=== PATIENT | female | born 1950 | race Caucasian/White ===

== ENCOUNTER → 2018-04-27 15:06 | Outpatient (CLI) | payer MEDICARE, OTHER, SELFPAY ==
--- NOTE | 2018-04-27 14:57 | DI.REPORT_ITS ---
SYMPTOMS/DIAGNOSIS: SWELLING OF LEFT WRIST, N79.89 LEFT WRIST: Three views. No bone or joint abnormality is identified. No radiopaque foreign bodies are seen in the soft tissues. IMPRESSION: Negative left wrist.
== END ==
PROVIDERS: PCP Family Medicine; Visit Provider Family Medicine
DX: M25.532 Pain in left wrist (principal); M79.89 Other specified soft tissue disorders
CPT/HCPCS: 73110

== ENCOUNTER 2019-11-21 10:12 | Outpatient (REF) | payer OTHER, SELFPAY ==
[2019-11-21 12:38] LABS: Anion Gap 11.4 mmol/L (3-11); BUN 13 mg/dL (7-18); CO2 25.6 mmol/L (21.0-32.0); CREATININE 0.87 mg/dL (0.55-1.02); Calcium 9.3 mg/dL (8.5-10.1); Calculated LDL 96 mg/dL (<100); Chloride 105 mmol/L (98-107); Cholesterol 163 mg/dL (<200); Glucose 86 mg/dL (74-106); HDL Cholesterol 57 mg/dL (40-60); Potassium 4.3 mmol/L (3.5-5.1); Sodium 142 mmol/L (136-145); Triglyceride 50 mg/dL (<150)
== END 2019-11-21 10:32 ==
LOC: NCHCN 10:12
PROVIDERS: PCP Family Medicine; Visit Provider Nurse Practitioner Family
DX: M25.511 Pain in right shoulder (principal); Z13.6 Encounter for screening for cardiovascular disorders
CPT/HCPCS: 80048; 80061

== ENCOUNTER 2019-12-02 10:07 | Outpatient (REF) | payer OTHER, SELFPAY ==
--- NOTE | 2019-12-02 09:15 | PAPFT_PTH ---
PATIENT: Nicky Ward LOC: [facility] U#:[id number] AGE/SX: 69/F ROOM: RE12/02/[address]: GENEVA Weinstein : 1950 BED: DIS: 12/02/2019 SPEC #: [id number] RECD: 12/02/19 12:52 STATUS: JAIR REQ #: [id number] PAVEL: 12/02/19 09:[address]: Jo Chambers DEPT: [facility] Cytology RECD BY: Catrina Stevens ENTERED: 12/02/19 12:53 SP TYPE: PAPFT OTHR DR: Kaitlin Edwards Tissues: 1 - CX/ENDOCX FOR PAP SMEARS Procedures: PAP THIN PREP/UVM Screening HPV DNA PROBE Comments: [id number]
== END 2019-12-02 10:27 ==
LOC: LBN 10:07
PROVIDERS: PCP Family Medicine; Visit Provider Nurse Practitioner Family
DX: Z12.4 Encounter for screening for malignant neoplasm of cervix (principal); Z11.51 Encounter for screening for human papillomavirus (HPV)
CPT/HCPCS: 88142; 87624

== ENCOUNTER 2020-08-12 16:11 | Outpatient (REF) | payer OTHER, SELFPAY ==
[2020-08-16 17:31] LABS: Patient Race White; SARS-CoV-2 RNA Undetected (Undetected); SARS-CoV-2 Specimen Source Nasal
== END 2020-08-12 16:31 ==
LOC: NCHCN 16:11
PROVIDERS: PCP Family Medicine; Visit Provider Physician Assistant
DX: Z20.828 Contact with and (suspected) exposure to other viral communicable diseases (principal)
CPT/HCPCS: U0003

== ENCOUNTER 2021-01-26 01:38 | Outpatient (CLI) | payer OTHER, SELFPAY ==
--- NOTE | 2021-01-26 | DI.DEXA_ITS ---
Exam(s) XR DEXA BONE DENSITY W/WO SHANNON EXAM: XR DEXA BONE DENSITY W/WO SHANNON CLINICAL HISTORY: SCREENING FOR OSTEOPOROSIS,Z13.820 TECHNIQUE: COMPARISON: No exams were available for comparison FINDINGS: Lateral Spine Image: Unremarkable. No compression deformities identified. Left hip: Total T-Score: -0.2 Total Z-Score: 1.4 T- and Z-scores: Within normal limits. Lumbar Spine: Total T-Score: 2.0 Total Z-Score: 4.2 T- and Z-scores: Within normal limits. IMPRESSION: Within normal limits. No evidence of osteoporosis.
== END 2021-01-26 01:58 ==
PROVIDERS: PCP Family Medicine; Visit Provider Nurse Practitioner Family
DX: Z13.820 Encounter for screening for osteoporosis (principal); Z78.0 Asymptomatic menopausal state
CPT/HCPCS: 77080

== ENCOUNTER 2021-05-18 11:17 | Outpatient (REF) | payer OTHER, SELFPAY ==
--- NOTE | 2021-05-18 10:00 | PAPFT_PTH ---
PATIENT: Nicky Ward LOC: [facility] U#:[id number] AGE/SX: 71/F ROOM: RE05/18/[address]: GENEVA Weinstein : 1950 BED: DIS: 05/18/2021 SPEC #: [id number] RECD: 05/18/21 12:52 STATUS: JAIR REQ #: [id number] PAVEL: 05/18/21 10:[address]: Jo Chambers DEPT: [facility] Cytology RECD BY: Catrina Stevens ENTERED: 05/18/21 12:52 SP TYPE: PAPFT OTHR DR: Kaitlin Edwards Tissues: 1 - CX/ENDOCX FOR PAP SMEARS Procedures: PAP THIN PREP/UVM Screening HPV DNA PROBE Comments: [id number]
== END 2021-05-18 11:18 | disposition home or self-care (01) ==
LOC: LBN 11:17
PROVIDERS: PCP Family Medicine; Visit Provider Nurse Practitioner Family
DX: Z12.4 Encounter for screening for malignant neoplasm of cervix (principal); Z11.51 Encounter for screening for human papillomavirus (HPV); Z01.419 Encounter for gynecological examination (general) (routine) without abnormal findings
CPT/HCPCS: 88142; 87624

== ENCOUNTER 2021-12-17 15:51 | Outpatient (REF) | payer OTHER, SELFPAY ==
[2021-12-17 16:14] LABS: Anion Gap 8.6 mmol/L (3-11); BUN 12 mg/dL (7-18); CO2 27.4 mmol/L (21.0-32.0); CREATININE 0.9 mg/dL (0.55-1.02); Calcium 9.3 mg/dL (8.5-10.1); Calculated LDL 119 mg/dL (<100); Chloride 104 mmol/L (98-107); Cholesterol 209 mg/dL (<200); Glucose 89 mg/dL (74-106); HDL Cholesterol 76 mg/dL (40-60); Potassium 4.2 mmol/L (3.5-5.1); Sodium 140 mmol/L (136-145); Triglyceride 73 mg/dL (<150)
== END 2021-12-17 15:52 | disposition home or self-care (01) ==
LOC: NCHCN 15:51
PROVIDERS: PCP Family Medicine; Visit Provider Nurse Practitioner Family
DX: Z13.220 Encounter for screening for lipoid disorders (principal)
CPT/HCPCS: 80048; 80061

== ENCOUNTER 2022-08-31 02:48 | Outpatient (CLI) | payer MEDICARE, SELFPAY ==
--- NOTE | 2022-08-31 | DI.US_ITS ---
Exam(s) US HERNIA EXAM: US HERNIA CLINICAL HISTORY: LT GROIN PAIN, R10.32 TECHNIQUE: Ultrasound performed using standard protocol. COMPARISON: No exams were available for comparison FINDINGS: Ultrasound of the inguinal regions was performed to evaluate for possible hernia. No hernia was iden tified. There are a couple of normal-appearing lymph nodes seen bilaterally in the inguinal regions. IMPRESSION: Negative soft tissue ultrasound of inguinal regions. DATA REPOSITORY:
== END 2022-08-31 03:08 ==
PROVIDERS: PCP Family Medicine; Visit Provider Nurse Practitioner Family
DX: R10.32 Left lower quadrant pain (principal)
CPT/HCPCS: 76857

== ENCOUNTER 2022-10-23 22:25 | Observation (INO) | payer MEDICARE, SELFPAY ==
--- NOTE | 2022-10-23 22:00 | RT.EKG_ITS ---
APPROVED REPORT Exam: Resting ECG Reason for Exam: chest pain Patient Location: E HR:53 bpm ECG Measurements Heart Rate 53 AXIS AK 172 P 51 QRSd 113 QRS 30 QT 419 T 37 QTc 393 Conclusion Sinus bradycardia...rate< 60 Physician: no stemi
[2022-10-23 22:23] VITALS: BP 151/57; PULSE 53; RESP 14; TEMP 36.7; O2SAT 99
--- NOTE | 2022-10-23 22:30 | DI.RAD_ITS ---
Exam(s) XR PORTABLE CHEST AP EXAM: XR PORTABLE CHEST AP CLINICAL HISTORY: central chest pain TECHNIQUE: 2D digital imaging was performed of the chest. One image was obtained. An AP view was ob tained. COMPARISON: CR CHEST 2 VIEWS PA,LAT from 08/18/2017 FINDINGS: MEDIASTINUM: Normal. HEART: Normal. PULMONARY VASCULATURE: Normal. LUNGS: Clear. PLEURAL SPACE: No pleural effusion or pneumothorax. BONE:Within normal limits for the patient's age. There is a mild right convex curvature of the thorac ic spine. OTHER FINDINGS:Normal. IMPRESSION: No acute pulmonary findings. DATA REPOSITORY: RADIATION DOSE DELIVERED:
[2022-10-23 22:32] VITALS: RESP 15
--- NOTE | 2022-10-23 22:32 | ED.GENADUL_ITS ---
Discharge Plan Disposition Patient Disposition: Admit to [facility] Condition: Improving Discharge Details Chief Complaint: Chest Pain Clinical Impression: Chest pain Primary Care Provider: Claritza Leone ED Provider: Ramon Emery Home Meds and New Rx's Prescriptions: No Action vitamin B complex Capsule 1 cap PO DAILY calcium carbonate [Calcium 600] 600 mg calcium (1,500 mg) tablet 600 mg PO BID estradiol 0.01 % (0.1 mg/gram) cream 1 g VG .COMPLEX Qty: 42.5 5RF Rx Instructions: 1 g vaginal twice a week cholecalciferol (vitamin D3) [Vitamin D3] 2,000 UNIT capsule 2,000 unit PO DAILY Medical Decision Making 72-year-old female with no significant past medical history who is healthy does not smoke, who presents today for evaluation of chest pain. Patient states that throughout the day her cat was notably interactive, and would not leave her alone. This did concern her for its atypical miss, and then this evening at 1930 the patient developed sudden central chest pain. She described it as a 5 out of 10. EMS arrived and she was given full dose aspirin and nitroglycerin which brought her pain down to a 0. After this the pain slowly came back to a 1 out of 10, and she was redosed with nitroglycerin which again resolved her pain. She denies any recent long trips, surgeries or procedures. No other complaints at this time. Currently she is chest pain- free. No history of blood clots or cardiac disease. She did have a stress test in 2017 which was normal. Exam demonstrates a well-appearing female, Physical exam demonstrates a well-appearing female, vital signs stable aside from mild hypertension. EKG shows no evidence of STEMI whatsoever. With the patient's resolution of her symptoms with nitroglycerin I am certainly concerned for cardiac etiology, will monitor closely evaluate for concerning etiologies and reassess. 12:47 AM Laboratory work-up has returned, no white count, bandemia or left shift, thyroid function normal, proBNP normal, with no suggestion of significant heart strain. EKG normal. Patient's pain did return, repeat EKG was ordered at that time which is normal, no signs of STEMI. Nitroglycerin ointment was placed for the patient. Patient is otherwise doing well. However because of her symptoms, and responsiveness to nitroglycerin, I do feel that admission for continued repeat troponins and stress test in the morning is indicated. Discussed the case with hospitalist Dr. Cohen, he agrees with the assessment and plan. I have extensively reviewed the treatment plan with the patient. I have addressed all patient concerns at this time. I have also discussed the plan with the admitting physician and they agree with the current assessment and plan and have agreed to assume responsibility for the patient. All parties demonstrate verbal underst anding and agreement with our assessment and plan at this time. The documentation in this chart was dictated using [employer] dictation software. Please excuse any dictation errors. FINDINGS: Lungs: The lungs are clear without infiltrate or edema. Pleural spaces: No pleural effusion. No pneumothorax. Heart/Mediastinum: The cardiac silhouette is normal in size. Bones/joints: No acute osseous abnormality. IMPRESSION: No acute findings. Thank you for allowing us to participate in the care of your patient. Dictated and Authenticated by: Colleen Strange MD 10/23/2022 11:02 PM Eastern Time ([place] & [place]) HPI General Date/Time Provider Initiated Documentation: 10/23/22 22:29 . HPI Narrative: 72-year-old female with no significant past medical history who is healthy does not smoke, who presents today for evaluation of chest pain. Patient states that throughout the day her cat was notably interactive, and would not leave her alone. This did concern her for its atypical miss, and then this evening at 1930 the patient developed sudden central chest pain. She described it as a 5 out of 10. EMS arrived and she was given full dose aspirin and nitroglycerin which brought her pain down to a 0. After this the pain slowly came back to a 1 out of 10, and she was redosed with nitroglycerin which again resolved her pain. She denies any recent long trips, surgeries or procedures. No other complaints at this time. Currently she is chest pain- free. No history of blood clots or cardiac disease. She did have a stress test in 2017 which was normal. Related Data Home Medications Medication Instructions Recorded Confirmed cholecalciferol (vitamin D3) 50 2,000 unit PO DAILY 10/28/15 06/07/22 mcg (2,000 unit) capsule (Vitamin D3) calcium carbonate 600 mg calcium 600 mg PO BID 05/18/21 06/07/22 (1,500 mg) tablet (Calcium) vitamin B complex 1 cap PO DAILY 05/18/21 06/07/22 estradiol 0.01% (0.1 mg/gram) 1 g vaginal .COMPLEX #42.5 grams 06/07/22 06/07/22 vaginal cream Previous Rx's Medication Instructions Recorded estradiol 0.01% (0.1 mg/gram) 1 g vaginal .COMPLEX #42.5 grams 06/07/22 vaginal cream Allergies Allergy/AdvReac Type Severity Reaction Status Date / Time codeine Allergy Intermediate Jittery Verified 06/07/22 13:45 General Stated Complaint: Chest Pain JOHN: 3 Review of Systems All systems reviewed & are unremarkable except as noted in HPI and below PFSH All Active Problems (Updated 10/24/22 @ 00:48 by Ramon Emery DO) Chest pain (Acute) Vaginal atrophy (Acute) Medical History Sleep apnea Surgical History S/P breast biopsy, left Family History Father Parkinson disease Mother Dementia Alcohol abuse Sister Celiac disease Social History Smoking/Tobacco Use Status: Never Smoking risk assessment performed?: Yes Alcohol Intake: current Alcohol Intake frequency: a few times a month Drug use: Never Substance use type: does not use Do you feel safe in your relationship?: Yes Female Reproductive History Menstrual Menopause type: natural History History 1 Para 0 Hx # Term Pregnancies Multiple births Hx # Pregnancies Ectopic pregnancies AB induced Hx Number of Living Children AB spontaneous Exam Narrative Exam Narrative: 1.Const: Well-nourished, Well-developed, appearing stated age 2.Eyes: PERRL, no conjunctival injection, and symmetrical lids. 3.ENT: Atraumatic external nose and ears. Moist MM. Neck: Symmetric, trachea midline, No thyromegaly. 4.CVS: +S1/S2, No murmurs or gallops. Peripheral pulses 2+ and equal in all extremities. Brisk capillary refill in all extremities. 5.RESP: Unlabored respiratory effort. Clear to auscultation bilaterally. No wheezes rales or rhonchi 6.GI: Soft, Nontender/Nondistended, No hepatosplenomegaly. No guarding or rebound. 7.MSK: Normocephalic/Atraumatic, Extremities w/o deformity or ttp No cyanosis or clubbing, Normal movement of all extremities 8.Skin: Warm, Dry. No rashes or lesions. 9.Neuro: surgical assist II-XII grossly intact. Sensation grossly intact, no focal neurologic deficits. 10.Psych: (AAO) x3. Appropriate mood and affect Course Vital Signs Vital signs: Vital Signs Temperature 36.7 C 10/23/22 22:23 Pulse 53 L 10/23/22 22:23 Respiratory Rate 14 10/23/22 22:23 Blood Pressure 151/57 H 10/23/22 22:23 Pulse Oximetry 99 10/23/22 22:23 Temperature 36.7 C 10/23/22 22:23 Pulse 53 L 10/23/22 22:23 Respiratory Rate 14 10/23/22 22:23 Blood Pressure 151/57 H 10/23/22 22:23 Pulse Oximetry 99 10/23/22 22:23 Oxygen Delivery Method Room Air 10/23/22 22:23 Oxygen Flow Rate 0 10/23/22 22:23 Pain Level 0 10/23/22 22:23
[2022-10-23 22:46] LABS: Source Nasal/Nares
[2022-10-23 22:47] LABS: Abs Immature Grans 0.01 10^3/uL (0.0-0.06); Absolute Basophil Count 0.04 10^3/uL (0.0-0.2); Absolute Eosinophil Count 0.31 10^3/uL (0.0-0.7); Absolute Lymphocyte Count 2.72 10^3/uL (1.2-3.4); Absolute Monocyte Count 0.33 10^3/uL (0.1-0.8); Basophils % 0.7; Eosinophils % 5.2; HCT 40.7 % (36.0-46.0); HGB 13.9 g/dL (11.2-15.7); Immature Grans % 0.2; MCH 31.7 pg (27.0-33.0); MCHC 34.2 % (32.0-36.0); MCV 93 fL (80-95); MPV 9.8 fL (8.0-11.0); Monocytes % 5.6; Neutrophils % 42.3; Platelet Count 222 10^3/uL (130-400); RBC 4.39 10^6/uL (3.93-5.22); RDW 12.6 % (11.7-14.6); RDW-SD 43.4 fL; WBC 5.91 10^3/uL (4.4-10.8)
[2022-10-23 23:00] LABS: INR 0.9 (0.9-1.1); PTT Activated 25.2 sec (21.0-27.5); Prothrombin Time 9.3 sec (9.3-11.0)
--- NOTE | 2022-10-23 23:02 | DI.VRAD_ITS ---
PROCEDURE INFORMATION: Exam: XR Chest Exam date and time: 10/23/2022 10:28 PM Age: 72 years old Clinical indication: Other: Central chest pain TECHNIQUE: Imaging protocol: Radiologic exam of the chest. Views: 1 view. COMPARISON: CT CHEST FOR PULMONARY EMBOLUS 08/18/2017 12:06 PM FINDINGS: Lungs: The lungs are clear without infiltrate or edema. Pleural spaces: No pleural effusion. No pneumothorax. Heart/Mediastinum: The cardiac silhouette is normal in size. Bones/joints: No acute osseous abnormality. IMPRESSION: No acute findings. Dictated and Authenticated by: Colleen Strange MD. Ordering:NELY Navarro MD
[2022-10-23 23:12] LABS: ALT 28 U/L (14-59); AST 26 U/L (15-37); Albumin 3.5 g/dL (3.4-5.0); Alkaline Phosphatase 104 U/L (46-116); Anion Gap 8.9 mmol/L (3-11); BUN 17 mg/dL (7-18); Bilirubin, Total 0.2 mg/dL (0.2-1.0); CO2 25.1 mmol/L (21.0-32.0); CREATININE 0.8 mg/dL (0.55-1.02); Calcium 8.8 mg/dL (8.5-10.1); Chloride 106 mmol/L (98-107); Estimated GFR 78.24 (mL/min/1.73m2); Glucose 98 mg/dL (74-106); Lipase 193 U/L (73-393); NT-proBNP 77 pg/mL (<300); Potassium 3.4 mmol/L (3.5-5.1); Sodium 140 mmol/L (136-145); TSH (W/Ref FT4) 3.11 uIU/mL (0.36-3.74); Total Protein 6.7 g/dL (6.4-8.2); Troponin I < 50 ng/L (<or=60)
[2022-10-23 23:17] LABS: COVID-19 PCR Negative (Negative)
[2022-10-24] VITALS (11 sets, daily range): BP systolic 98–124; BP diastolic 43–83; PULSE 51–55; RESP 14–18; TEMP 36.1–36.6; O2SAT 97–100
--- NOTE | 2022-10-24 | DI.US_ITS ---
APPROVED REPORT EXAM: Comprehensive 2D, Doppler, and color-flow Echocardiogram Patient Location: In-Patient Room/Bed: 212 Animal Geneticist: Parisa Segundo RDCS (AE) Indications: Chest pain Other Information Study Quality: Adequate Conclusion Normal left ventricular wall thickness and chamber size. Estimated ejection fraction is 65 to 70%. Wall motion is normal Normal right ventricular size and systolic function Both atria are normal in size The aortic valve is trileaflet, mildly sclerotic, without stenosis or regurgitation There is no additional structural or hemodynamically significant valvular disease Wall motion Left Ventricle The left ventricle is normal size. The left ventricular systolic function is normal. The left ventric ular ejection fraction is within the normal range. There is normal left ventricular wall thickness. T here is normal LV segmental wall motion. There is no ventricular septal defect visualized. LVEF is 68 %. Right Ventricle The right ventricle is normal size. The right ventricular systolic function is normal. The RVSP is 20 .9mmHg. Atria The left atrium size is normal. The right atrium size is normal. The interatrial septum is intact wit h no evidence for an atrial septal defect. Aortic Valve The aortic valve is mildly sclerotic Aortic valve is trileaflet. There is no aortic valvular stenosis . No aortic regurgitation is present. Mitral Valve The mitral valve is normal in structure. No evidence of mitral valve stenosis. Trace mitral regurgita tion. Tricuspid Valve The tricuspid valve is normal in structure. There is no tricuspid valve stenosis. Trace tricuspid reg urgitation. Pulmonic Valve The pulmonary valve is normal in structure. There is no pulmonic valvular stenosis. There is no pulmo jarret valvular regurgitation. Great Vessels The aortic root is normal in size. Ascending aorta is not well visualized. Aortic arch is not well vi sualized. IVC is normal in size and collapses >50% with inspiration. Pericardium There is no pericardial effusion. 2D Dimensions IVSD d PLAX 0.82 cm F: 0.6-1.0 LV Vol A2C d MOD 62.8 mL LVPW d PLAX 0.80 cm F: 0.6 - 1.0 LV Vol A4C d MOD 80.4 mL LVID d PLAX 4.25 cm F: 3.8 - 5.2 LA vol/ BSA A2C s A-L 30.4 mL/m2 LVDs 2.75 cm F: 2.2 - 3.5 LA vol/ BSA A4C s A-L 25.0 mL/m2 Ao Root d 2.53 cm F: 2.7 - 3.3 LA Vol/ BSA Biplane s A-L 27.7 mL/m2 RA Area A4C 10.19 cm2 LA Area A4C s MOD 16.23 cm2 RA Vol/ BSA A4C s A-L 12.3 mL/m2 LA Area A2C s MOD 17.94 cm2 LV EF Teichholz 64.9 % LV EF A4C MOD 69.4 % LVEF (Hernandez's) 68.05 % F: 54 - 74 LV EF A2C MOD 68.7 % LV Volume 57.71 mL F: 46 - 106 LV EF Biplane MOD 68.0 % LV Volume Index 33.55 mL/m2 F: 29 - 61 SV 49.61 mL LV Vol Biplane MOD 72.9 mL SV Index 28.92 mL/m2 FS 35.20 % M-Mode TAPSE 2.99 cm (M/F) >1.7 LV Diastology MV E' medial 0.105 (>0.07 m/s) E/A Ratio 0.9 LV E/e MED 6.95 (<14) MV E Vmax 0.73 (0.4-1.3 m/s) MV E' lateral 0.082 (>0.1 m/s) MV A Vmax 0.85 (0.4-1.3 m/s) LV E/e LAT 8.90 (<14) MV E/A Ratio 0.83 MV E/E' medial 6.95 MV E/E' lateral 8.93 Aortic Valve LVOT Area 3.01 cm2 AoV Area Vmax 2.30 cm2 LVOT Vmax 1.24 m/s AoV Area/ BSA (Vmax) 1.34 cm2/m2 LVOT Mean Cirilo. 0.71 m/s KEN Mean Cirilo. 2.04 cm2 LVOT Peak Grad 6.2 mmHg KEN Mean Cirilo. Index 1.19 cm2/m2 LVOT Mean Grad 2.5 mmHg LVOT VTI 0.272 m LVOT Diam s 1.95 cm AoV Vmax 1.63 m/s Velocity Ratio 0.76 AoV Mean Cirilo. 1.05 m/s AoV Peak Grad 10.7 mmHg LVOT SV 82.01 mL AoV Mean Grad 5.2 mmHg AoV VTI 0.391 m AoV Area VTI 2.10 cm2 AoV Area/ BSA (VTI) 1.22 cm/m2 Mitral Valve MV DT 332 (160-240 msec) MV PHT 96 msec MV Area PHT 2.29 cm2 MV VTI 0.310 m MV Area VTI 2.65 (4.0-6.0 cm2) Pulmonary Valve PV Vmax 0.78 (0.5-1.5 m/s) RVOT Peak Gr. 1.87 mmHg PV Peak Grad 2.4 mmHg RVOT Mean Gr. 0.90 mmHg PV Mean Grad 1.4 mmHg RVOT VTI 0.157 m PV VTI 0.194 m RVOT Vmax 0.68 m/s Tricuspid Valve TR Peak Grad 17.8 mmHg TR Vmax 2.11 m/s RA Pressure 3.00 mmHg RVSP (TR) 20.9 mmHg
--- NOTE | 2022-10-24 00:15 | RT.EKG_ITS ---
APPROVED REPORT Exam: Resting ECG Reason for Exam: chest pain Patient Location: I HR:48 bpm ECG Measurements Heart Rate 48 AXIS ME 176 P 41 QRSd 113 QRS 25 QT 437 T 28 QTc 392 Conclusion Sinus bradycardia...rate< 60 Physician: no stemi
[2022-10-24] MEDS: nitroGLYcerin 2% 1 INCH/1 GM PKT TP (00:42)
--- NOTE | 2022-10-24 00:44 | HPE_ITS ---
Date of service: 10/24/22 Time of Service: 00:44 Assessment and Plan Assessment and plan (1) Chest pain: Status: Acute Assessment and plan: Atypical CP. The normal EKG during pain and the chest tenderness are suggestive of a non-cardiac etiology, but the apparent response to NTG is notable, albeit non-diagnostic. Would advise cycle troponins and, if negative, stress test in AM. Will also give empiric dose of PPI. History of Present Illness History of Present Illness Chief Complaint: CP Narrative: 72 female with no significant PMH, here 2017 for episode of CP, reports negative work up and negative stress test. States she was under a great deal of emotional stress at the time. Tonight noted gradual onset left sided CP (ache), non- raidiating w/o associated nausea , diaphoresis or SOB. EMS summoned and EKG reported as normal at the scene. Given NTG SL with resolution of p[ain, then a second NTG en route for recurrence. Here in ER initial EKG unremarkable, CXR WNL and troponin negative. Had brief recurrence of CP, again resolving with NTG. I was asked to evaluate for admission. Patient denies any unusual stress but does note she was shovelling heavy snow 2 days [employer]. Denies change of pain with activity, change of position or deep breathing. At time of visit patient states she is feeling some vague 1/10 CP and repeat EKG is again unremarkable. Review of Systems Narrative: per HPI PFSH All Active Problems Chest pain (Acute) Vaginal atrophy (Acute) Medical History Sleep apnea Surgical History S/P breast biopsy, left Family History Father Parkinson disease Mother Dementia Alcohol abuse Sister Celiac disease Social History Smoking/Tobacco Use Status: Never Smoking risk assessment performed?: Yes Alcohol Intake: current Alcohol Intake frequency: a few times a month Drug use: Never Substance use type: does not use Do you feel safe in your relationship?: Yes Female Reproductive History Menstrual Menopause type: natural History History 1 Para 0 Hx # Term Pregnancies Multiple births Hx # Pregnancies Ectopic pregnancies AB induced Hx Number of Living Children AB spontaneous Meds Allergies and Home Medications Allergies Allergy/AdvReac Type Severity Reaction Status Date / Time codeine Allergy Intermediate Jittery Verified 06/07/22 13:45 Home Medications Medication Instructions Recorded Confirmed Type cholecalciferol (vitamin D3) 50 2,000 unit PO DAILY 10/28/15 06/07/22 History mcg (2,000 unit) capsule (Vitamin D3) calcium carbonate 600 mg calcium 600 mg PO BID 05/18/21 06/07/22 History (1,500 mg) tablet (Calcium) vitamin B complex 1 cap PO DAILY 05/18/21 06/07/22 History estradiol 0.01% (0.1 mg/gram) 1 g vaginal .COMPLEX #42.5 grams 06/07/22 06/07/22 Rx vaginal cream Exam Narrative Exam Narrative: 151/57, 53, 36.7, 15, 99% RA. HEENT atraumatic; neck supple w/o JVD; lungs clear; heart RRR w/o MRG, chest slightly tender left parasternal in area generally of her pain, though says it is of a different quality; no pain with resisted left shoulder adduction; abdomen soft and NT; extremities w/o edema, pulse 2+/=; neuro Ox3, lucid, moves all 4s Results Labs Result diagrams: 10/23/22 22:40 10/23/22 22:40 Labs: Laboratory Results - last 24 hr 10/23/22 10/23/22 10/23/22 22:40 22:40 22:40 WBC 5.91 RBC 4.39 Hgb 13.9 Hct 40.7 MCV 93 MCH 31.7 MCHC 34.2 RDW 12.6 Plt Count 222 MPV 9.8 Immature Gran % 0.2 Neutrophils % 42.3 Lymphocytes % 46.0 Monocytes % 5.6 Eosinophils % 5.2 Basophils % 0.7 Nucleated RBC % 0.0 Absolute Neutrophils 2.50 Absolute Lymphocytes 2.72 Absolute Monocytes 0.33 Absolute Eosinophils 0.31 Absolute Basophils 0.04 PT INR APTT Sodium 140 Potassium 3.4 L Chloride 106 Carbon Dioxide 25.1 Anion Gap 8.9 BUN 17 Creatinine 0.8 Est GFR (CKD-EPI 2020) 78.24 Glucose 98 Calcium 8.8 Total Bilirubin 0.2 AST 26 ALT 28 Alkaline Phosphatase 104 Troponin I < 50 NT-Pro-B Natriuret Pep 77 Total Protein 6.7 Albumin 3.5 Lipase 193 TSH 3.11 COVID-19 Source Nasal/Nares SARS-CoV-2 (PCR) Negative 10/23/22 22:40 WBC RBC Hgb Hct MCV MCH MCHC RDW Plt Count MPV Immature Gran % Neutrophils % Lymphocytes % Monocytes % Eosinophils % Basophils % Nucleated RBC % Absolute Neutrophils Absolute Lymphocytes Absolute Monocytes Absolute Eosinophils Absolute Basophils PT 9.3 INR 0.9 APTT 25.2 Sodium Potassium Chloride Carbon Dioxide Anion Gap BUN Creatinine Est GFR (CKD-EPI 2020) Glucose Calcium Total Bilirubin AST ALT Alkaline Phosphatase Troponin I NT-Pro-B Natriuret Pep Total Protein Albumin Lipase TSH COVID-19 Source SARS-CoV-2 (PCR) Last Vital Signs Temp 36.7 C 10/23/22 22:23 Pulse 53 L 10/23/22 22:23 Resp 15 10/23/22 22:32 BP 151/57 H 10/23/22 22:23 Pulse Ox 99 10/23/22 22:23 Time Spent Time spent with Patient: 40-54 minutes Time was spent: preparing to see the patient(eg.review tests), obtaining and/or reviewing separately otained hiistory, ordering medications,tests, procedures, referring, communicating with other health nurse care manager and indepentently interpreting results
[2022-10-24 01:45] LABS: Troponin I < 50 ng/L (<or=60)
--- NOTE | 2022-10-24 02:16 | NUR.NOTE ---
Report given to LI Goldsmith
--- NOTE | 2022-10-24 02:25 | NUR.NOTE ---
MD Rupert made aware of BP 98/48. Per MD Rupert take 1/2 nitro paste off now
[2022-10-24] MEDS: Pantoprazole 40 MG TABCR PO (02:26)
[2022-10-24 07:05] LABS: Troponin I < 50 ng/L (<or=60)
--- NOTE | 2022-10-24 07:30 | RT.EKG_ITS ---
APPROVED REPORT Exam: Resting ECG Reason for Exam: chest pain Patient Location: I HR:51 bpm ECG Measurements Heart Rate 51 AXIS MT 174 P 49 QRSd 114 QRS 35 QT 438 T 43 QTc 404 Conclusion Sinus rhythm...normal P axis, V-rate 50- 99 Normal Electrocardiogram
[2022-10-24 07:37] LABS: Abs Immature Grans 0.01 10^3/uL (0.0-0.06); Absolute Basophil Count 0.03 10^3/uL (0.0-0.2); Absolute Eosinophil Count 0.25 10^3/uL (0.0-0.7); Absolute Lymphocyte Count 2.28 10^3/uL (1.2-3.4); Absolute Monocyte Count 0.38 10^3/uL (0.1-0.8); Basophils % 0.6; HCT 39.5 % (36.0-46.0); HGB 13.4 g/dL (11.2-15.7); Immature Grans % 0.2; Lymphocytes % 45.1; MCH 31.9 pg (27.0-33.0); MCHC 33.9 % (32.0-36.0); MCV 94 fL (80-95); MPV 9.9 fL (8.0-11.0); Monocytes % 7.5; Neutrophils % 41.6; Platelet Count 220 10^3/uL (130-400); RDW-SD 44.5 fL; WBC 5.05 10^3/uL (4.4-10.8)
[2022-10-24 08:35] LABS: Lab Add On Test DONE
[2022-10-24 08:56] LABS: Anion Gap 7.3 mmol/L (3-11); BUN 17 mg/dL (7-18); CO2 26.7 mmol/L (21.0-32.0); CREATININE 0.9 mg/dL (0.55-1.02); Calcium 9.1 mg/dL (8.5-10.1); Chloride 105 mmol/L (98-107); Cholesterol 208 mg/dL (<200); Estimated GFR 67.92 (mL/min/1.73m2); Glucose 92 mg/dL (74-106); HDL Cholesterol 80 mg/dL (40-60); Magnesium 2.2 mg/dL (1.8-2.4); Potassium 3.9 mmol/L (3.5-5.1); Sodium 139 mmol/L (136-145)
[2022-10-24] MEDS: Acetaminophen 325 MG TAB 650 MG PO (08:56)
[2022-10-24 08:57] LABS: Triglyceride < 25 mg/dL (<150)
[2022-10-24] MEDS: nitroGLYcerin 0.4 MG TAB SL (08:57)
[2022-10-24 09:08] LABS: LDL CHOLESTEROL 117 mg/dL (<100)
--- NOTE | 2022-10-24 11:26 | PDOC.CMIN ---
- If Service Date Differs Date of service: 10/24/22 Time of Service: 11:26 Care Management Initial Assess REASON FOR HOSPITALIZATION:: Chest Pain PAST MEDICAL HISTORY/PAST SURGICAL HISTORY:: Chest pain (Acute). Vaginal atrophy (Acute). Medical History . Sleep apnea. Surgical History . S/P breast biopsy, left PREVIOUS FUNCTIONAL STATUS/SOCIAL/FAMILY SUPPORTS:: Resides in [place], is . Nicky is independent at baseline, her sister resides in [place] and she has friends locally. CURRENT FUNCTIONAL STATUS:: Preparing for discharge; no CM needs at this time. ADVANCE DIRECTIVES:: None on file. Has patient been provided with info about the portal/API?: No Did the patient sign up for the portal?: No CODE STATUS:: Full Code INSURANCE COVERAGE / FINANCIAL ISSUES:: MCR replacement [facility] PRIMARY CARE PHYSICIAN:: Claritza Leone POTENTIAL DISCHARGE NEEDS:: Follow up appointments, MPI stress test, ECHO. PATIENT/FAMILY EDUCATION NEEDS:: Review discharge instructions, discuss Ask Me Three. ANTICIPATED BARRIERS TO DISCHARGE:: None identified. TRANSPORTATION:: Via private vehicle with a friend. PLAN:: Nicky will return home with outpatient follow up, she will transport via private vehicle with a friend. No additional services anticipated at this time.
--- NOTE | 2022-10-24 11:30 | DI.NM_ITS ---
APPROVED REPORT Exam: Exercise Treadmill Patient Location: In-Patient Room/Bed: [facility] Stress Nurse: Maria Teresa Fletcher RN Ordering Provider:DOMINIQUE HERNANDEZ, Contact Number: BMI: 28.34 Baseline Rhythm: Sinus Bradycardia Indications: CHEST PAIN Medical History Medical History: Sleep apnea Cardiac Medications: None Allergies: Codeine Cardiac Risk Factors: None Previous Cardiac Procedures: None Pretest Chest Pain Characteristics: No chest pain Exercise History: Physically active Physical Disabilities: None Lung Sounds: Clear to auscultation Heart Sounds: Regular Stress Test Details Test: Exercise stress testing was performed using a Jaylen protocol. Nuclear Acquisition: Rest Tc-99m/Stress Tc-99m 1 day Rest Isotope: Tc-99m Sestamibi. Dose: 10.0 Date: 10/24/2022 Injection Time: 1115 Stress Isotope: Tc-99m Sestamibi. Dose: 30.0 Date: 10/24/2022 Injection Time: 1310 HR Resting HR Supine: 48 bpm Max Heart Rate (APMHR): 148.047078 bpm Resting HR Standin bpm Target HR (85% APMHR): 125.188257 bpm Max HR Achieved: 130 bpm % of APMHR: 87.84 Recovery HR: 65 bpm HR response to stress: Normal HR response to stress BP Resting BP Supine: 132/72 mmHg Resting BP Standin/72 mmHg Max BP: 160/58 mmHg Recovery BP: 118/72 mmHg BP response to stress: Normal blood pressure response to stress. ECG Resting ECG: Sinus Bradycardia Ectopy: None Stress ECG: Sinus Tachycardia ST Change: No significant ST segment changes noted Arrhythmia: frequent PVCs Recovery ECG: Sinus Rhythm Recovery ST Change: No significant ST segment changes noted Recovery Arrhythmia: frequent PVCs Clinical Reason for Termination: Fatigue Stress Symptoms: General Fatigue Exercise duration: 8 min16 sec Highest Stage Reached: Stage 3: 3.4 mph at 14% grade. Exercise capacity: 10.16 METs Rubin Treadmill Score: 7.4 Rate Pressure Product: 69023 Stress ECG Conclusion Rubin Treadmill Score is 7.4 which is Low risk. Stress Test Summary STAGE Time (mins) Speed (mph) Grade (%) HR BP SpO2 SYMPTOMS METS Supine 48 132/72 Standing 53 128/72 98 1 3 1.7 10 88 132/62 4.5 2 6 2.5 12 112 140/72 7 3 9 3.4 14 142/62 98 10 1 min recovery 86 160/58 3 min recovery 70 138/62 99 6 min recovery 65 118/72 MPI Conclusion Myocardial perfusion is normal. There is no ischemia or evidence of infarction EF 75%, normal wall motion Radiologist Interpretation Radiologist Interpretation by: Maninder Pak MD Interpretation Date/Time: 10/24/2022 16:53:29
--- NOTE | 2022-10-24 14:56 | W.PM.DS.N ---
Date of service: 10/24/22 Time of Service: 14:56 DS: Diagnosis Discharge Diagnosis (1) Chest pain: Status: Acute Discharge Plan Disposition Patient Disposition: Home Condition: Good Discharge Details Reason For Visit: CP Admit Date/Time: 10/24/22 00:59 Admit Provider: Ramon Cohen Attending Provider: Ramon Cohen Primary Care Provider: Claritza Leone Hospital Course Hospital Course: Ms Ward is a 72 year old female with no significant PMHx who was a patient on [facility] hospitalist service on 10/24/22 with episodes of chest pain which were relieved with nitroglycerin. The patient did, however, also admit to shoveling snow at the end of last week and possibly pulling a muscle. She had negative troponins and EKGs and did not have any arrhythmic events on telemetry. She had a normal echocardiogram, per preliminary read, and a negative MPI stress test. She is medically stable for discharge home today. She may use NSAIDs/tylenol and rest to treat her pain. Care for patient on the day of her discharge as well as completion of her discharge paperwork took 40 minutes. Home Meds and New Rx's Prescriptions: No Action vitamin B complex Capsule 1 cap PO DAILY calcium carbonate [Calcium 600] 600 mg calcium (1,500 mg) tablet 600 mg PO DAILY estradiol 0.01 % (0.1 mg/gram) cream 1 g VG .COMPLEX Qty: 42.5 5RF Rx Instructions: 1 g vaginal twice a week cholecalciferol (vitamin D3) [Vitamin D3] 2,000 UNIT capsule 2,000 unit PO DAILY Discharge Instructions Instructions: Musculoskeletal Pain (ED), Noncardiac Chest Pain (DC) Additional Instructions: Return to the hospital with any fever, bleeding, chest pain, or shortness of breath. Follow up with your PCP in 1- 2 weeks. Referrals: Claritza Leone [Primary Care Provider] - Activity:: Activity as Tolerated Equipment/Supplies:: No Equipment Needed Diet:: As Tolerated Discharge Orders Discharge Orders: Discharge Order (Routine); Ordered 10/24/22 Ordered By: Jaqueline Rodriguez DS: Summary Time Spent with Patient providing and/or coordinating discharge services: Greater than 30 minutes Status at Discharge Functional status at discharge: independent ambulation Overall status at discharge: patient is back to baseline Mental Status: mental status grossly normal Speech and Movement: speech and movement normal Mood: congruent mood Affect: normal affect Exam Narrative Exam Narrative: General: Pleasant middle-aged female who is A&Ox3, NAD HEENT: EOMI, MMM Heart: RRR, no m/r/g Lungs: CTAB Abdomen: soft, nontender, nondistended Extremities: no edema BLEs Psych Mental Status: mental status grossly normal Speech and Movement: speech and movement normal Mood: congruent mood Affect: normal affect DS: Data Vitals/I&O Vitals and I&O: Vital Signs Temperature 36.4 C L 10/24/22 11:30 Temperature Source Tympanic 10/24/22 11:30 Pulse 53 L 10/24/22 11:30 Pulse Rhythm Regular 10/24/22 02:40 Respiratory Rate 14 10/24/22 11:30 Respiratory Effort 10/24/22 02:40 Respiratory Depth Normal 10/24/22 02:40 Respiratory Pattern Normal 10/24/22 02:40 Blood Pressure 123/83 10/24/22 11:30 Pulse Oximetry 98 10/24/22 11:30 Oxygen Delivery Method Room Air 10/24/22 11:30 Oxygen Flow Rate 0 10/24/22 11:30 Pain Level 0 10/24/22 11:30 Comment 10/24/22 09:16 Intake & Output 10/23/22 10/24/22 10/24/22 23:59 11:59 23:59 Output Total 1000 / 1000 Balance -1000 / -1000 Weight 70.307 kg Output: Urine 1000 / 1000 Other: Urine Color Yellow Urine Appearance Clear Voiding Methods Toilet Data Completed and Pending Completed studies during hospitalization [Text1]: CXR: No acute pulmonary findings. Pending studies at discharge: Echo: official read pending. Preliminary read: no abnormalities MPI: official read pending. Preliminary read: no abnormalities. Labs on day of discharge: Labs from last 24 hours 10/24/22 10/24/22 10/24/22 06:20 06:20 06:20 WBC 5.05 RBC 4.20 Hgb 13.4 Hct 39.5 MCV 94 MCH 31.9 MCHC 33.9 RDW 13.0 Plt Count 220 MPV 9.9 Immature Gran % 0.2 Neutrophils % 41.6 Lymphocytes % 45.1 Monocytes % 7.5 Eosinophils % 5.0 Basophils % 0.6 Nucleated RBC % 0.0 Absolute Neutrophils 2.10 Absolute Lymphocytes 2.28 Absolute Monocytes 0.38 Absolute Eosinophils 0.25 Absolute Basophils 0.03 PT INR APTT Sodium 139 Potassium 3.9 Chloride 105 Carbon Dioxide 26.7 Anion Gap 7.3 BUN 17 Creatinine 0.9 Est GFR (CKD-EPI 2020) 67.92 Glucose 92 Calcium 9.1 Magnesium 2.2 Total Bilirubin AST ALT Alkaline Phosphatase Troponin I NT-Pro-B Natriuret Pep Total Protein Albumin Triglycerides < 25 Total Cholesterol 208 H LDL Cholesterol Direct 117 H LDL Cholesterol, Calc TNP HDL Cholesterol 80 Lipase TSH COVID-19 Source SARS-CoV-2 (PCR) Add-On Test Request DONE 10/24/22 10/24/22 10/23/22 06:20 01:20 22:40 WBC RBC Hgb Hct MCV MCH MCHC RDW Plt Count MPV Immature Gran % Neutrophils % Lymphocytes % Monocytes % Eosinophils % Basophils % Nucleated RBC % Absolute Neutrophils Absolute Lymphocytes Absolute Monocytes Absolute Eosinophils Absolute Basophils PT 9.3 INR 0.9 APTT 25.2 Sodium Potassium Chloride Carbon Dioxide Anion Gap BUN Creatinine Est GFR (CKD-EPI 2020) Glucose Calcium Magnesium Total Bilirubin AST ALT Alkaline Phosphatase Troponin I < 50 < 50 NT-Pro-B Natriuret Pep Total Protein Albumin Triglycerides Total Cholesterol LDL Cholesterol Direct LDL Cholesterol, Calc HDL Cholesterol Lipase TSH COVID-19 Source SARS-CoV-2 (PCR) Add-On Test Request 10/23/22 10/23/22 10/23/22 22:40 22:40 22:40 WBC 5.91 RBC 4.39 Hgb 13.9 Hct 40.7 MCV 93 MCH 31.7 MCHC 34.2 RDW 12.6 Plt Count 222 MPV 9.8 Immature Gran % 0.2 Neutrophils % 42.3 Lymphocytes % 46.0 Monocytes % 5.6 Eosinophils % 5.2 Basophils % 0.7 Nucleated RBC % 0.0 Absolute Neutrophils 2.50 Absolute Lymphocytes 2.72 Absolute Monocytes 0.33 Absolute Eosinophils 0.31 Absolute Basophils 0.04 PT INR APTT Sodium 140 Potassium 3.4 L Chloride 106 Carbon Dioxide 25.1 Anion Gap 8.9 BUN 17 Creatinine 0.8 Est GFR (CKD-EPI 2020) 78.24 Glucose 98 Calcium 8.8 Magnesium Total Bilirubin 0.2 AST 26 ALT 28 Alkaline Phosphatase 104 Troponin I < 50 NT-Pro-B Natriuret Pep 77 Total Protein 6.7 Albumin 3.5 Triglycerides Total Cholesterol LDL Cholesterol Direct LDL Cholesterol, Calc HDL Cholesterol Lipase 193 TSH 3.11 COVID-19 Source Nasal/Nares SARS-CoV-2 (PCR) Negative Add-On Test Request PFSH All Active Problems Chest pain (Acute) Vaginal atrophy (Acute) Medical History Sleep apnea Surgical History S/P breast biopsy, left Family History Father Parkinson disease Mother Dementia Alcohol abuse Sister Celiac disease Social History Smoking/Tobacco Use Status: Never Smoking risk assessment performed?: Yes Alcohol Intake: current Alcohol Intake frequency: a few times a month Drug use: Never Substance use type: does not use Do you feel safe in your relationship?: Yes Female Reproductive History Menstrual Menopause type: natural History History 1 Para 0 Hx # Term Pregnancies Multiple births Hx # Pregnancies Ectopic pregnancies AB induced Hx Number of Living Children AB spontaneous Time Spent with Patient Time Spent with Patient: <45 minutes Time was spent: preparing to see the patient(eg.review tests), obtaining and/or reviewing separately otained hiistory, ordering medications,tests, procedures, referring, communicating with other health acute care registered nurse, indepentently interpreting results, counseling the patient and care coordination
== END 2022-10-24 17:45 | disposition home or self-care (01) ==
LOC: ER 10-24 01:45 → MS 10-24 02:27
PROVIDERS: Internal Medicine; Admitting Provider General Practice; Emergency Provider Student in an Organized Health Care Education/Training Program; PCP Nurse Practitioner Family; Visit Provider General Practice
DX: R07.9 Chest pain, unspecified (principal); Z20.822 Contact with and (suspected) exposure to COVID-19; Z79.899 Other long term (current) drug therapy; N95.2 Postmenopausal atrophic vaginitis
CPT/HCPCS: 36415; 78452; 80048; 80053; 80061; 83690; 83721; 87635; 93005; 93016; 93018; 93306; 99285; 71045; 83735; 83880; 84443; 84484; 85025; 85610; 85730; 93010; 93017; 99222; 99239; G0378

== ENCOUNTER 2023-01-26 17:49 | Outpatient (REF) | payer MEDICARE, SELFPAY ==
[2023-01-27 09:38] LABS: Hepatitis C Ab w Rflx HCV PCR Negative (Negative)
[2023-01-27 09:55] LABS: HIV-1/2 Ag & Ab Screen Negative (Negative)
== END 2023-01-26 17:50 | disposition home or self-care (01) ==
LOC: NCHCN 17:49
PROVIDERS: PCP Nurse Practitioner Family; Visit Provider Family Medicine
DX: Z11.4 Encounter for screening for human immunodeficiency virus [HIV] (principal); Z11.59 Encounter for screening for other viral diseases; Z00.00 Encounter for general adult medical examination without abnormal findings
CPT/HCPCS: 86803; 87389

== ENCOUNTER 2023-02-16 02:21 | Outpatient (CLI) | payer MEDICARE, SELFPAY ==
--- NOTE | 2023-02-16 07:00 | DI.US_ITS ---
Exam(s) US PELVIS TRANSVAGINAL EXAM: US PELVIS TRANSVAGINAL CLINICAL HISTORY: LT ADNEXAL PAIN, R10.2, ? OVARIAN PATHOLOGY. TECHNIQUE: Transabdominal and transvaginal pelvic ultrasound was performed using standard protocol. COMPARISON: No exams were available for comparison FINDINGS: UTERUS: Position: Anteverted. Size: 4.6 long by 2.5 AP by 4.4 transverse cm Endometrium: 0.5 cm. Normal for patient's menstrual status. The fundal endometrium is mildly thickene d and lobulated. It is homogeneously hyperechoic. The area measures 1.5 x 0.7 x 1.8 cm. Myometrium: Unremarkable. Cervix: Nabothian cysts are seen. OVARIES: Right: 2.4 x 2.3 x 1.0 cm Cyst or mass: No suspicious cystic or solid masses. Left: 2.2 x 0.7 x 1.8 cm Cyst or mass: No suspicious cystic or solid masses. CUL-DE-SAC: Free fluid: None. Other: None. IMPRESSION: 1. Lobulated appearance of the fundal endometrium measuring up to 1.5 x 0.7 x 1.8 cm. An endometrial mass cannot be excluded. This may represent an endometrial polyp, neoplasm or hyperplasia. Further evaluation is recommended. 2. Unremarkable bilateral ovaries. Unexpected findings DATA REPOSITORY:
== END 2023-02-16 02:41 ==
PROVIDERS: PCP Nurse Practitioner Family; Visit Provider Family Medicine
DX: R10.2 Pelvic and perineal pain (principal); R93.89 Abnormal findings on diagnostic imaging of other specified body structures
CPT/HCPCS: 76830; 76856

== ENCOUNTER 2023-03-06 04:28 | Outpatient (CLI) | payer MEDICARE, SELFPAY ==
[2023-03-06 10:34] LABS: Abs Immature Grans 0.01 10^3/uL (0.0-0.06); Absolute Basophil Count 0.03 10^3/uL (0.0-0.2); Absolute Eosinophil Count 0.15 10^3/uL (0.0-0.7); Absolute Lymphocyte Count 1.71 10^3/uL (1.2-3.4); Absolute Monocyte Count 0.45 10^3/uL (0.1-0.8); Absolute Neutrophil Count 3.73 10^3/uL (1.2-6.7); Basophils % 0.5; Eosinophils % 2.5; HCT 41.5 % (36.0-46.0); Immature Grans % 0.2; Lymphocytes % 28.1; MCH 31.5 pg (27.0-33.0); MCHC 33.7 % (32.0-36.0); MCV 94 fL (80-95); MPV 9.2 fL (8.0-11.0); Monocytes % 7.4; Neutrophils % 61.3; Platelet Count 227 10^3/uL (130-400); RBC 4.44 10^6/uL (3.93-5.22); RDW 12.9 % (11.7-14.6); RDW-SD 44.2 fL; WBC 6.08 10^3/uL (4.4-10.8)
== END 2023-03-06 04:29 | disposition home or self-care (01) ==
LOC: LBO 04:28
PROVIDERS: PCP Family Medicine; Visit Provider Obstetrics & Gynecology
DX: R10.32 Left lower quadrant pain (principal); R93.89 Abnormal findings on diagnostic imaging of other specified body structures; R10.2 Pelvic and perineal pain; Z01.818 Encounter for other preprocedural examination; Z01.812 Encounter for preprocedural laboratory examination
CPT/HCPCS: 36415; 86850; 86900; 86901; 85025

== ENCOUNTER 2023-03-08 07:21 | Day surgery (SDC) | payer MEDICARE, SELFPAY ==
--- NOTE | 2023-03-08 06:22 | W.ANESPRE ---
General Info Date of Service Date Performed: 03/08/23 Height: 5 ft 2.5 in Weight: 69 kg Body Mass Index (BMI): 27.3 Surgical Procedure: Operation Date: 03/08/23 08:55 Proposed Procedure Side Surgeon p Dilation & Curettage with Hysteroscopy, Myosure Carlota Shin DO Meds Allergies and Home Medications Allergies Allergy/AdvReac Type Severity Reaction Status Date / Time codeine Allergy Intermediate Jittery Verified 03/08/23 07:43 Home Medication Medication Instructions Recorded cholecalciferol (vitamin D3) 50 2,000 unit PO DAILY 10/28/15 mcg (2,000 unit) capsule (Vitamin D3) calcium carbonate 600 mg calcium 600 mg PO DAILY 05/18/21 (1,500 mg) tablet (Calcium) vitamin B complex 1 cap PO DAILY 05/18/21 estradiol 0.01% (0.1 mg/gram) 1 g vaginal .COMPLEX #42.5 grams 06/07/22 vaginal cream Current Visit Medications: Current Medications Generic Name Dose Route Start Last Admin Trade Name Josef PRN Reason Stop Dose Admin Ringer's Solution 1,000 mls @ 125 mls/hr 03/08/23 06:00 IV 04/06/23 23:59 INFUSION TOM IV Miscellaneous Supplies 1 each 03/08/23 06:00 Iv Access IV 04/06/23 23:59 DIRECTED TOM Sodium Chloride 0 ml 03/08/23 06:00 Normal Saline Flush 10 Ml Syr IV 04/06/23 23:59 PRN PRN Sodium Chloride 0 ml 03/08/23 06:00 Normal Saline 10 Ml Vial IJ 04/06/23 23:59 DIRECTED PRN Sterile Water 0 ml 03/08/23 06:00 Water,Injection,Sterile 10 Ml Vial IJ 04/06/23 23:59 DIRECTED PRN PFSH Active Problems Active Problems: Problem Status Onset Code Vaginal atrophy N95.2 Chest pain R07.9 Endometrial thickening on ultrasound R93.89 Medical History Medical History (Updated 03/08/23 @ 07:55 by Keely Campbell RN) Celiac disease per pt, not diagnosed by biopsy, but PCP told pt to assume she has celiac due to family hx and current symptoms Sleep apnea Surgical History Surgical History (Updated 03/07/23 @ 11:38 by Yumi Alarcon) History of colonoscopy S/P breast biopsy, left S/P trigger finger release 6/13/23: L. thumb, per pt. -BR Tobacco Smoking/Tobacco Use Status: Never Alcohol Alcohol Intake: current Alcohol intake frequency: a few times a month Substance Use Substance use: Never Substance use type: does not use Prental History History 1 Para 0 Hx # Term Pregnancies Multiple births Hx # Pregnancies Ectopic pregnancies AB induced Hx Number of Living Children AB spontaneous Vital Signs and Lab Results Vital Signs Most Recent Vital Signs in EMR: Temp Pulse Resp BP Pulse Ox 36.4 C L 55 L 16 124/69 99 03/08/23 07:25 03/08/23 07:25 03/08/23 07:25 03/08/23 07:25 03/08/23 07:25 Lab Results Blood Type / Crossmatch: Patient ABO/Rh B Negative 03/06/23 Antibody Screen NEGATIVE 03/06/23 Complete Blood Count: White Blood Count 6.08 10^3/uL (4.4-10.8) 03/06/23 10:28 Red Blood Count 4.44 10^6/uL (3.93-5.22) 03/06/23 10:28 Hemoglobin 14.0 g/dL (11.2-15.7) 03/06/23 10:28 Hematocrit 41.5 % (36.0-46.0) 03/06/23 10:28 Platelet Count 227 10^3/uL (130-400) 03/06/23 10:28 Complete Metabolic Panel: No Data to Display Liver Function Panel: No Data to Display Coagulation Panel: No Data to Display Cardiac Panel: No Data to Display Arterial Blood Gas: No Data to Display Venous Blood Gas: No Data to Display Pancreas Panel: No Data to Display Thyroid Panel: No Data to Display Infectious Disease: No Data to Display Blood Cultures: No Data to Display Toxicology Panel: No Data to Display Imaging and Studies Imaging and Studies Study information below may be from another EMR and interpreted by another provider. Please see original notes in EMR for more complete details. EKG Summary: 10/17: sinus Stress Test Summary: 10/17: perfusion is normal, no ischemia or infarction. LVEF 75%. Echocardiogram Summary: 10/17: LVEF 65-70%, normal RVFxn, mild aortic sclerosis no stenosis. Anesthesia Assessment and Plan Anesthesia History Personal History: No History of Anesthesia Complications Family History: No Family History of Anesthesia Complications Exercise Tolerance Exercise Tolerance: Metabolic Equivalents>4 Cardiac & Pulmonary Exam Cardiac Exam: Normal S1/S2 Heart Sounds Pulmonary Exam: Clear Bilateral Breath Sounds Implantable Cardiac Device Does patient have a Pacemaker or an ICD?: No Airway Exam Known Difficult Airway: No Mallampati Class: 3 Mouth Opening: Normal (> 3cm) Thyromental Distance: Greater than 3 cm Neck Range of Motion: Full ROM Neck Circumference: Normal Teeth Condition: Normal Dentition ASA Classification ASA Score: ASA 2 Emergency Case?: No NPO Status NPO Status: NPO Clears >2 hours, Solids >8 hours Anesthesia Plan Resuscitation Status: Full Code Anesthesia Technique: General Anesthesia Airway Planned: Natural Airway Monitors Used: Standard Monitors Preoperative Comments:: 73 yo female for hysteroscopy. Sig PMHx: RISHABH, never smoker, occ EtOH. Previous Anes: - colo, fent/midaz, prop, natrual airway, no issues.
[2023-03-08 07:25] VITALS: BP 124/69; PULSE 55; RESP 16; TEMP 36.4; O2SAT 99
[2023-03-08] MEDS: Lactated Ringers 1,000 ML 125 ML IV (08:10)
[2023-03-08 09:00] VITALS: BMI 27.3
--- NOTE | 2023-03-08 10:04 | ENDO_PTH ---
PATIENT: Nicky Ward LOC: [facility] U#:[id number] AGE/SX: 73/F ROOM: RE03/08/[address]: Carlota Shin DO : 1950 BED: DIS: 03/08/2023 SPEC #: [id number] RECD: 03/08/23 11:08 STATUS: [facility] #: [id number] PAVEL: 03/08/23 10:[address]: Carlota Shin DEPT: Surgical Specimen RECD BY: Catrina Stevens ENTERED: 03/08/23 11:09 SP TYPE: Endo OTHR DR: Rosa M Turpin Tissues: 1 - ENDOCERVICAL BX/CURRETTE 2 - ENDOMETRIUM BX/CURRETTE 3 - ENDOMETRIUM BX/CURRETTE Procedures: GROSS AND MICRO LEVEL 4 IMMUNOPEROXIDASE STAIN Comments: [id number]
[2023-03-08] MEDS: Silver Nitrate Stick 1 EACH (10:10)
[2023-03-08 10:14] VITALS: BP 131/70; PULSE 47; RESP 14; TEMP 35.7; O2SAT 98
--- NOTE | 2023-03-08 10:22 | ROE_ITS ---
Date of service: 03/08/23 Time of Service: 10:22 Operative Note Operative Note DATE OF PROCEDURE: 03/08/23 PRE-OP DIAGNOSIS: Suspected endometrial polyp POST-OP DIAGNOSIS: same PROCEDURE: Hysteroscopy, fractional dilation and curettage, removal of endometrial polyp via MyoSure SURGEON: Carlota Shin ANESTHESIA TYPE: General:No Airway Refer to Anesthesia Record ESTIMATED BLOOD LOSS: 5 PATHOLOGY: other (1. Endometrial polyp 2. Endocervical curettage 3. E ndometrial curettage) COMPLICATIONS: None Patient was transported to: same day Patient's condition: stable Indications: Thickened endometrium and suspected endometrial polyp Findings: Smooth regular endocervical canal and endometrial canal with polypoid structure at the uterine fundus. Procedure Description: After full informed consent was obtained, the patient was taken the operating suite with an IV running. Pneumatic compression stockings were placed for DVT prophylaxis. No antibiotic prophylaxis was warranted. She was placed in the supine position and general anesthesia administered. She was then placed in the modified dorsal lithotomy position in [facility] stirrups and prepped and draped in the usual sterile fashion. Bladder was emptied for approximately 100 cc of clear yellow urine. Examiner anesthesia revealed a uterus that was midline and mobile and not enlarged. At this point a speculum was placed into the posterior vaginal vault and the cervical os identified. Anterior lip of the cervix was grasped with a single-tooth tenaculum and cervical os dilated to the point that a 4 mm hysteroscope could be passed with ease. With instillation of normal saline the endometrial cavity was inspected. Tubal ostia were visualized bilaterally. The endometrial and endocervical canal appeared smooth and regular. There was a polypoid structure at the uterine fundus which was noted on previous ultrasound. At this point the MyoSure device was inserted and used to remove a polyp in toto. The base of the resection was hemostatic. With completion of the resection, fractional dilation and curettage was performed first via endocervical curettings, followed by endometrial curettings. Both of these specimens were scant in nature. At this point the procedure was ter minated. The tenaculum was removed from the anterior lip of the cervix. The right hand puncture site was not hemostatic which was cauterized chemically with silver nitrate and noted to be hemostatic. At this point the speculum was removed and the patient returned to the dorsal supine position where she awoke from anesthesia with ease. She was taken to the same-day surgical area in stable condition. Fluid deficit: 40 mL Fluids: Crystalloid per anesthesia Complications: None apparent Findings: As above Specimens to pathology: 1. Endometrial polyp 2. Endocervical curettings 3. Endometrial curettings.
[2023-03-08 10:45] VITALS: BP 151/70; PULSE 42; RESP 16; TEMP 36.2; O2SAT 100
--- NOTE | 2023-03-08 11:14 | W.ANESPOSTOP ---
Postoperative Evaluation Date, Time and Location Date Performed: 03/08/23 Time Performed: 11:14 Patient Location: Day Surgery Unit Vital Signs Most Recent Imported Vital Signs: Most Recent Vital Signs Temp Pulse Resp BP Pulse Ox 36.2 C L 42 L 16 151/70 H 100 03/08/23 10:45 03/08/23 10:45 03/08/23 10:45 03/08/23 10:45 03/08/23 10:45 Pain Score Most Recent Pain Score: Most Recent Pain Score Pain Level 8 03/08/23 10:45 Assessment Mental Status: Awake (Alert & Oriented to Patient Baseline) Airway and Respiratory Function: Patent airway with normal (patient baseline) respiratory exam Cardiovascular Function: Hemodynamically Stable Hydration Status: Adequately Hydrated Nausea & Vomiting: No Nausea or Vomiting Pain: Pain is Moderate or Severe Postoperative Pain Management: Pain being addressed with medication Peripheral Nerve Block: Patient did not receive a nerve block
== END 2023-03-08 11:50 | disposition home or self-care (01) ==
PROVIDERS: PCP Family Medicine; Visit Provider Obstetrics & Gynecology
PROC: 0UDB8ZZ Extraction of Endometrium, Via Natural or Artificial Opening Endoscopic (ICD-10-PCS; CPT 58558; principal; 2023-03-08 08:45)
DX: R93.89 Abnormal findings on diagnostic imaging of other specified body structures (principal); N84.0 Polyp of corpus uteri
CPT/HCPCS: 58558; 88305; 88361; J0131; J1100; J2001; J2405

== ENCOUNTER → 2024-02-06 04:27 | Outpatient (CLI) | payer MEDICARE, SELFPAY ==
--- NOTE | 2024-02-06 | DI.RAD_ITS ---
Exam(s) XR HAND LT COMPLETE EXAM: XR HAND LT COMPLETE CLINICAL HISTORY: M79.642 Pain in left hand, since injury November,point tender over 4th MCP. TECHNIQUE: 2D digital imaging was performed of the left hand. Three views were obtained. AP, later al and oblique views were obtained. COMPARISON: CR LEFT WRIST COMPLETE from 04/27/2018 FINDINGS: BONES: No acute or healing fractures identified. No bony destructive lesion is seen. JOINTS: No dislocation present. Mild degenerative changes are seen in the interphalangeal joints of t he hand and the 1st MCP joint. SOFT TISSUE: Old well-circumscribed calcific densities are seen adjacent to several joints. IMPRESSION: No acute or healing fracture or dislocation. DATA REPOSITORY: RADIATION DOSE DELIVERED:
== END ==
PROVIDERS: PCP Family Medicine; Visit Provider Family Medicine
DX: M79.642 Pain in left hand (principal)
CPT/HCPCS: 73130

== ENCOUNTER 2024-04-04 14:43 | Outpatient (REF) | payer MEDICARE, SELFPAY ==
--- NOTE | 2024-04-04 11:15 | SKI_PTH ---
PATIENT: Nicky Ward LOC: [facility] U#:[id number] AGE/SX: 74/F ROOM: RE04/04/[address]: Rosa M Turpin : 1950 BED: DIS: 04/04/2024 SPEC #: [id number] RECD: 04/04/24 14:49 STATUS: [facility] #: [id number] PAVEL: 04/04/24 11:[address]: Rosa M Turpin DEPT: Surgical Specimen RECD BY: Dana Byrne Tissues: 1 - SKIN BIOPSY(SHAVE/PUNCH) Procedures: SKIN LEVEL 4 Comments: [id number]
== END 2024-04-04 14:44 | disposition home or self-care (01) ==
LOC: NCHCN 14:43
PROVIDERS: PCP Family Medicine; Visit Provider Family Medicine
DX: L82.1 Other seborrheic keratosis (principal)
CPT/HCPCS: 88305

== ENCOUNTER 2024-06-19 16:08 | Outpatient (CLI) | payer MEDICARE, SELFPAY ==
--- NOTE | 2024-06-19 | DI.RAD_ITS ---
Exam(s) XR FINGER LT LITTLE EXAM: XR FINGER LT LITTLE CLINICAL HISTORY: M79.645 Pain in left finger,little. TECHNIQUE: 2D digital imaging was performed. COMPARISON: CR XR HAND LT COMPLETE from 02/06/2024 FINDINGS: 3 views No evidence of acute fracture or dislocation of the 5th finger. There is a 3 by 1.5 mm calcific dens ity adjacent to the lateral aspect of the proximal interphalangeal joint. This finding is unchanged from prior radiographs of January 2024 and therefore does not represent acute fracture. It is possibly c alcification related to the collateral ligament at this level. There does not appear to be an obviou s adjacent bony erosion although there is soft tissue swelling over the PIP joint seen on the lateral view. IMPRESSION: No acute osseous findings in the 5th finger. There is a 3 x 1.5 mm calcific density immediately adjacent to the lateral aspect of the proximal int erphalangeal joint, unchanged from images of 02/06/2024. DATA REPOSITORY: RADIATION DOSE DELIVERED:
--- NOTE | 2024-06-19 16:47 | DI.VRAD_ITS ---
PROCEDURE INFORMATION: Exam: XR Left Finger(s) Exam date and time: 06/19/2024 4:27 PM Age: 74 years old Clinical indication: Other: Pain in left finger, little TECHNIQUE: Imaging protocol: Radiologic exam of the left fingers. Views: Minimum 2 views. COMPARISON: CR XR HAND LT COMPLETE 02/06/2024 2:16 PM FINDINGS: Bones/joints: There is again seen calcification at the anterolateral aspect of the left 5th finger proximal interphalangeal joint, which appears more amorphous than seen on the prior examination. No acute fracture or aggressive osseous lesion. Soft tissues: Soft tissue swelling of the left 5th finger centered at the interphalangeal joint. IMPRESSION: Amorphous calcification and soft tissue swelling associated with the left 5th finger interphalangeal joint. The imaging findings are consistent with acute calcific periarthritis. Dictated and Authenticated by: Maninder Green MD. Ordering:RAVINDER Cunningham MD
== END 2024-06-19 16:28 ==
PROVIDERS: PCP Family Medicine; Visit Provider Physician Assistant Medical
DX: M79.645 Pain in left finger(s) (principal)
CPT/HCPCS: 73140

== ENCOUNTER 2025-02-03 15:20 | Outpatient (REF) | payer MEDICARE, SELFPAY ==
[2025-02-03 18:20] LABS: ALT 26 U/L (14-59); AST 21 U/L (15-37); Albumin 4.1 g/dL (3.4-5.0); Alkaline Phosphatase 101 U/L (46-116); Anion Gap 7.5 mmol/L (3-11); BUN 16 mg/dL (7-18); Bilirubin, Total 0.8 mg/dL (0.2-1.0); CO2 27.5 mmol/L (21.0-32.0); Calcium 9.9 mg/dL (8.5-10.1); Chloride 104 mmol/L (98-107); Estimated GFR 58.75 (mL/min/1.73m2); Glucose 99 mg/dL (74-106); Potassium 4.3 mmol/L (3.5-5.1); Sodium 139 mmol/L (136-145)
[2025-02-04 21:07] LABS: Calculated LDL 143 mg/dL (<100); Cholesterol 221 mg/dL (<200); HDL Cholesterol 65 mg/dL (>or=50); Triglyceride 67 mg/dL (<150)
== END 2025-02-03 15:21 | disposition home or self-care (01) ==
LOC: NCHCN 15:20
PROVIDERS: PCP Family Medicine; Visit Provider Family Medicine
DX: Z13.220 Encounter for screening for lipoid disorders (principal); Z68.29 Body mass index [BMI] 29.0-29.9, adult; E66.9 Obesity, unspecified
CPT/HCPCS: 80053; 80061

== ENCOUNTER 2025-02-06 01:17 | Outpatient (CLI) | payer MEDICARE, SELFPAY ==
--- NOTE | 2025-02-06 | DI.RAD_ITS ---
Exam(s) XR CERVICAL SPINE COMP 4-5V EXAM: XR CERVICAL SPINE COMP 4-5V CLINICAL HISTORY: NECK PAIN, CERVICALGIA M54.2. TECHNIQUE: 2D digital imaging was performed. Six images were obtained. AP, odontoid, lateral and sheron ateral oblique images were obtained. COMPARISON: No exams were available for comparison FINDINGS: The odontoid is intact. The lateral masses are well aligned. There is straightening of the normal ce rvical lordosis. This may be due to muscle spasm or patient positioning. There are endplate osteoph ytes at the C3-4 through C6-C7 levels. There is disc space narrowing seen at C5-C6. No acute fractur e or subluxation is present. There is neural foraminal narrowing seen at C5-C6 bilaterally and C6-C7 on the left. The cervical thoracic junction is well maintained. The prevertebral soft tissues are u nremarkable. Lung apices are clear. IMPRESSION: Moderate cervical spondylosis. DATA REPOSITORY: RADIATION DOSE DELIVERED:
== END 2025-02-06 01:37 ==
LOC: DI 01:17
PROVIDERS: PCP Family Medicine; Visit Provider Family Medicine
DX: M47.812 Spondylosis without myelopathy or radiculopathy, cervical region (principal)
CPT/HCPCS: 72050

== ENCOUNTER 2025-02-14 00:42 | Outpatient (CLI) | payer MEDICARE, SELFPAY ==
--- NOTE | 2025-02-14 | DI.DEXA_ITS ---
Exam(s) XR DEXA BONE DENSITY W/WO SHANNON EXAM: XR DEXA BONE DENSITY W/WO SHANNON CLINICAL HISTORY: Asymptomatic menopausal state, Z78.0; screening for osteoporosis TECHNIQUE: [employer] C densitometer analysis of left hip, lumbar spine and left forearm. Lat eral survey image of the thoracic and lumbar spine. COMPARISON: CR XR DEXA BONE DENSITY W/WO SHANNON from 01/26/2021 FINDINGS: Lateral view of the thoracic and lumbar spine shows no evidence of compression fractures. Bone mineral density measurements of the lumbar spine correspond to a total T-score of 2.0, in the n ormal range. This is unchanged from the prior exam. Bone mineral density measurements of the left hip correspond to a total T-score of -0.6. This repre sents a 5.3 percent decrease from 2020 the femoral neck T-score is -0.3, in the normal range. Theleft forearm bone mineral density measurements correspond to a T-score of the distal 3rd of -0.2, in the normal range. This represents a 2.8 percent decrease from 2020. IMPRESSION: Normal bone mineral density.
== END 2025-02-14 01:02 ==
LOC: DI 00:42
PROVIDERS: PCP Family Medicine; Visit Provider Family Medicine
DX: Z78.0 Asymptomatic menopausal state (principal); Z13.820 Encounter for screening for osteoporosis
CPT/HCPCS: 77080

== ENCOUNTER 2025-04-16 02:02 | Outpatient (CLI) | payer MEDICARE, SELFPAY ==
--- NOTE | 2025-04-16 | DI.MRI_ITS ---
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 COMPARISON: CR XR CERVICAL SPINE COMP 4-5V from 02/06/2025 FINDINGS: BONES: Vertebral body heights are maintained. Intervertebral disc spaces are normal. There is mild reversal of the normal cervical lordosis at C5-C6. Endplate degenerative signal changes are seen at C4-5, C5-6 and C6-C7. There are endplate osteophytes at these levels. CERVICAL CORD: Craniovertebral junction is unremarkable. The cervical cord is normal size and signal intensity. SOFT TISSUES: Unremarkable. C2-3: No disc herniation or bulge is identified. No significant central spinal canal or neural foraminal stenosis. C3-4: No disc herniation or bulge is identified. Degenerative changes of the facets are seen at L3-L4 on the left causing mild narrowing of the neural foramen. C4-5: No disc herniation or bulge is identified. Degenerative changes seen of the left uncovertebral joint causing mild left neural foraminal stenosis. No significant central spinal canal or right neural foraminal stenosis is present. C5-6: There is a diffuse disc bulge at this level compressing the anterior aspect of the spinal cord and narrowing the spinal canal to 7 mm. There is bilateral uncovertebral joint degenerative change causing bilateral neural foraminal stenosis. C6-7: No disc herniation or bulge is identified. There is mild prominence of the uncovertebral joint on the left causing mild narrowing of the left neural foramen. C7-T1: No disc herniation or bulge is identified. No significant central spinal canal or neural foraminal stenosis IMPRESSION: 1. Prominent degenerative changes and a diffuse disc bulge at C5-C6 causing central spinal canal and moderate bilateral neural foraminal stenosis. 2. Degenerative changes seen in the cervical spine from C3-4 through C6-C7 causing left neural foraminal stenosis at these levels. 3. There is flattening of the spinal cord at C5-C6 secondary to the disc bulge, but there is normal signal in the spinal cord. DATA REPOSITORY:
--- NOTE | 2025-04-16 | DI.MRI_ITS ---
Exam(s) MR BRAIN WO EXAM: MR BRAIN WO CLINICAL HISTORY: R42. DIZZINESS AND GIDDINESS DISEQUILIBRIUM , DIZZINESS HEADACHES R/O TECHNIQUE: Multiplanar multisequence MRI of the brain was performed. COMPARISON: No exams were available for comparison FINDINGS: VENTRICLES AND EXTRA AXIAL SPACES: Normal in size and morphology for the patient's age. MIDLINE SHIFT: None. CEREBRAL PARENCHYMA: No focus of restricted diffusion to suggest acute infarct. No space-occupying lesion identified. There are multiple foci of hyperintense signal seen in the white matter on the FLAIR and T2 weighted images most consistent with chronic microvascular ischemic disease. HEMORRHAGE: None. BRAINSTEM/CEREBELLUM: Normal. CALVARIUM: Normal. VISUALIZED PARANASAL SINUSES/MASTOIDS:Clear. [place]: Normal flow void. PITUITARY GLAND: Unremarkable. OTHER FINDINGS: None. IMPRESSION: 1. No evidence of an acute infarct or intracranial mass. 2. Age-related cerebral atrophy and chronic microvascular ischemic disease. DATA REPOSITORY:
== END 2025-04-16 02:22 ==
LOC: DI 02:02
PROVIDERS: PCP Family Medicine; Visit Provider Family Medicine
DX: M48.02 Spinal stenosis, cervical region (principal); M99.61 Osseous and subluxation stenosis of intervertebral foramina of cervical region
CPT/HCPCS: 70551; 72141